=== PATIENT | male | born 2000 | race Caucasian/White ===

== ENCOUNTER 2022-02-23 18:58 | Emergency (ER) | payer OTHER, SELFPAY ==
[2022-02-23 19:31] VITALS: BP 136/79; PULSE 78; RESP 18; TEMP 37; O2SAT 96
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
[2022-02-23 21:09] VITALS: BP 130/69; PULSE 56; RESP 18; O2SAT 97
== END 2022-02-23 21:10 | disposition home or self-care (01) ==
PROVIDERS: Emergency Provider Physician Assistant; PCP Nurse Practitioner Family
DX: S51.811A Laceration without foreign body of right forearm, initial encounter (principal); V86.56XA Driver of dirt bike or motor/cross bike injured in nontraffic accident, initial encounter
CPT/HCPCS: 12002